=== PATIENT | female | born 1960 | race Caucasian/White ===

== ENCOUNTER 2017-10-15 13:12 | Day surgery (SDC) | payer BC, OTHER ==
[~2017-10-15 13:12] MED LIST: LIDOCAINE 2% (SDV) 5 ML INJ
[2017-10-15] MEDS ORDERED: SOD CHLORIDE 0.9% 1,000 ML IV (14:00)
[2017-10-15] MEDS ORDERED: CEFAZOLIN 2 GM/50 ML (PMX) 50 ML IVPB (14:00)
[2017-10-15] MEDS ORDERED: BUPIVACAINE 0.25% (MPF) 30 ML INJ (17:36)
[2017-10-15] MEDS ORDERED: FENTAnyl 50 MCG/ML VIAL (17:51)
[2017-10-15] MEDS ORDERED: ROPIVACAINE 0.5 % 30 ML VIAL (17:59)
[2017-10-15] MEDS ORDERED: SUCCINYLCHOLINE CHLORIDE 100 MG/5 ML SYG IV (18:13)
[2017-10-15] MEDS ORDERED: ROCURONIUM 50 MG INJ (18:13)
[2017-10-15] MEDS ORDERED: CEFAZOLIN 1 GM INJ (18:13)
[2017-10-15] MEDS ORDERED: SUGAMMADEX SODIUM 200 MG/2 ML VIAL IV (18:13)
[2017-10-15] MEDS ORDERED: PROPOFOL 20 ML (18:13)
[2017-10-15] MEDS ORDERED: DEXAMETHASONE 4 MG/ML 1 ML INJ (18:28)
[2017-10-15] MEDS: BUPIVACAINE 0.5%/EPI (SDV) 30 ML INJ INJ (18:29)
[2017-10-15] MEDS ORDERED: MEPERIDINE 25 MG INJ IV (18:30)
[2017-10-15] MEDS ORDERED: DIPHENHYDRAMINE 50 MG INJ IV (18:30)
[2017-10-15] MEDS ORDERED: HYDROmorphONE (0.2 MG/ML) 10ML SYG IV ×3 (18:30)
[2017-10-15] MEDS ORDERED: FENTAnyl 50 MCG/ML VIAL IV ×3 (18:30)
[2017-10-15] MEDS ORDERED: ONDANSETRON 4 MG INJ IV (19:30)
[2017-10-15] MEDS ORDERED: HYDROCODONE/APAP (5/325) TAB PO (19:30)
[2017-10-15] MEDS ORDERED: IBUPROFEN 600 MG TAB PO (19:30)
[2017-10-15] MEDS ORDERED: morphine 2 MG INJ IV (19:30)
[2017-10-15] MEDS: KETOROLAC 30 MG INJ IV (20:17)
[2017-10-15] MEDS: HYDROCODONE/APAP (5/325) TAB PO (20:17)
[2017-10-15] MEDS: ONDANSETRON 4 MG INJ IV (20:20)
[2017-10-15] MEDS: METOCLOPRAMIDE 10 MG INJ IV (20:42)
== END 2017-10-15 20:50 | disposition home or self-care (01) ==
LOC: SDS 13:12
DX: K80.10 Calculus of gallbladder with chronic cholecystitis without obstruction (principal); I10 Essential (primary) hypertension
CPT/HCPCS: 47562; 88304

== ENCOUNTER 2018-01-22 00:35 | Emergency (ER) | payer BC ==
[2018-01-22 01:25] LABS: ADD MAN DIFF? NO
[2018-01-22 01:29] LABS: WHITE BLOOD COUNT 5.9 10^3/ul (4.8-10.8)
[2018-01-22 01:29] LABS: BASOPHILS % 0.7 % (0.0-2.0); EOSINOPHILS # 0.1 10^3/ul (0.0-0.5); EOSINOPHILS % 1.9 % (0.0-7.0); HEMATOCRIT 35.3 % (37.0-47.0); HEMOGLOBIN 11.7 g/dl (12.0-16.0); IMMATURE GRANS #M 0.02 10^3/ul; IMMATURE GRANS % (M) 0.3 %; LYMPHOCYTES # 2.8 10^3/ul (0.8-2.9); LYMPHOCYTES % 47.2 % (15.0-51.0); MEAN CORPUSCULAR HGB CONC 33.1 g/dl (32.0-37.0); MEAN CORPUSCULAR VOLUME 90.5 fl (82.0-101.0); MEAN PLATELET VOLUME 9.6 fl (7.4-10.4); MONOCYTE # 0.3 10^3/ul (0.3-0.9); MONOCYTES % 5.1 % (0.0-11.0); NEUTROPHIL # 2.6 10^3/ul (1.6-7.5); NEUTROPHILS % 44.8 % (39.0-77.0); PLATELET COUNT 298 10^3/UL (140-415); RED CELL DISTRIBUTION WIDTH 13.1 % (11.5-14.5)
[2018-01-22 01:44] LABS: ADD UMIC YES; UR ASCORBIC ACID 40 mg/dL (NEGATIVE); UR BACTERIA FEW /HPF (NONE SEEN); UR BILIRUBIN (Dip) NEGATIVE (NEGATIVE); UR BLOOD (Dip) NEGATIVE (NEGATIVE); UR CLARITY SLIGHTLY CLOUDY (CLEAR); UR COLOR YELLOW (YELLOW); UR GLUCOSE (Dip) NEGATIVE (NEGATIVE); UR KETONES (Dip) NEGATIVE (NEGATIVE); UR LEUKOCYTE ESTERASE (Dip) 3+ Leu/ul (NEGATIVE); UR MUCUS MODERATE /HPF (NONE SEEN); UR NITRITE (Dip) NEGATIVE (NEGATIVE); UR RBC 2 /HPF (0-5); UR SQUAMOUS EPITHELIAL CELL MODERATE /HPF (FEW); UR TOTAL PROTEIN (Dip) NEGATIVE (NEGATIVE); UR UROBILINOGEN (Dip) 1+ mg/dL (NEGATIVE); UR WBC 8 /HPF (0-5)
[2018-01-22 01:54] LABS: ALANINE AMINOTRANSFERASE 15 IU/L (13-69); ALBUMIN 4.4 g/dl (3.3-4.9); ALBUMIN/GLOBULIN RATIO 1.12; ALKALINE PHOSPHATASE 66 IU/L (42-121); ANION GAP 16 (8-16); ASPARTATE AMINO TRANSFERASE 20 IU/L (15-46); BILIRUBIN,INDIRECT 0.1 mg/dl (0-1.1); BILIRUBIN,TOTAL 0.1 mg/dl (0.2-1.3); BLOOD UREA NITROGEN 17 mg/dl (7-20); CALCIUM 9.4 mg/dl (8.4-10.2); CARBON DIOXIDE 27 mmol/L (21-31); CHLORIDE 106 mmol/L (97-110); CREATININE 1.01 mg/dl (0.44-1.00); GLUCOSE 109 mg/dl (70-220); LIPASE 195 U/L (23-300); SODIUM 145 mmol/L (135-144); TOTAL PROTEIN 8.3 g/dl (6.1-8.1)
== END 2018-01-22 04:08 | disposition home or self-care (01) ==
LOC: E/R 00:35
DX: N39.0 Urinary tract infection, site not specified (principal); I10 Essential (primary) hypertension
CPT/HCPCS: 36415; 74176; 80053; 81001; 83690; 85025; 87086; 99284-25

== ENCOUNTER 2018-06-26 17:13 | Emergency (ER) | payer BC ==
[2018-06-26] MEDS: LORAZEPAM 2 MG INJ IV (21:47)
[2018-06-26 22:02] LABS: ADD MAN DIFF? NO
[2018-06-26 22:15] LABS: WHITE BLOOD COUNT 6.3 10^3/ul (4.8-10.8)
[2018-06-26 22:15] LABS: BASOPHILS % 0.6 % (0.0-2.0); EOSINOPHILS # 0.1 10^3/ul (0.0-0.5); EOSINOPHILS % 2.1 % (0.0-7.0); HEMATOCRIT 35.8 % (37.0-47.0); HEMOGLOBIN 11.7 g/dl (12.0-16.0); LYMPHOCYTES # 2.8 10^3/ul (0.8-2.9); LYMPHOCYTES % 44.7 % (15.0-51.0); MEAN CORPUSCULAR HEMOGLOBIN 29.5 pg (29.0-33.0); MEAN CORPUSCULAR HGB CONC 32.7 g/dl (32.0-37.0); MEAN CORPUSCULAR VOLUME 90.2 fl (82.0-101.0); MEAN PLATELET VOLUME 10.7 fl (7.4-10.4); MONOCYTE # 0.4 10^3/ul (0.3-0.9); MONOCYTES % 5.7 % (0.0-11.0); NEUTROPHILS % 46.7 % (39.0-77.0); PLATELET COUNT 250 10^3/UL (140-415); RED BLOOD COUNT 3.97 10^6/ul (4.20-5.40); RED CELL DISTRIBUTION WIDTH 12.8 % (11.5-14.5)
[2018-06-26 22:21] LABS: ANION GAP 10 (5-13); BLOOD UREA NITROGEN 19 mg/dl (7-20); CALCIUM 9.4 mg/dl (8.4-10.2); CARBON DIOXIDE 25 mmol/L (21-31); CHLORIDE 107 mmol/L (97-110); CREATININE 0.74 mg/dl (0.44-1.00); Estimated GFR > 60 mL/min (>60); GLUCOSE 95 mg/dl (70-220); POTASSIUM 4.1 mmol/L (3.5-5.1); SODIUM 142 mmol/L (135-144)
[2018-06-26 22:29] LABS: INR 0.91; PARTIAL THROMBOPLASTIN TIME 27.6 Sec (23.0-35.0); PROTIME 12.4 Sec (11.9-14.9)
[2018-06-26 22:32] LABS: D-DIMER 1248.74 ng/ml (<460)
[2018-06-26 22:33] LABS: TROPONIN-I < 0.012 ng/ml (0.000-0.120)
[2018-06-26] MEDS: SOD CHLORIDE 0.9% 100 ML (23:13)
[2018-06-26] MEDS: IOHEXOL 100 ML (23:13)
== END 2018-06-27 | disposition home or self-care (01) ==
LOC: E/R 06-27
DX: R06.02 Shortness of breath (principal); I10 Essential (primary) hypertension
CPT/HCPCS: 36415; 71045; 71275; 80048; 84484; 85025; 85378; 85610; 85730; 93005; 96374; 99285-25